=== PATIENT | female | born 1980 | race African-American/Black ===

== ENCOUNTER 2019-05-11 16:00 | Emergency (ER) | payer MEDICAID ==
[~2019-05-11] VITALS: Ht 162.6 cm; Wt 65.0 kg
[2019-05-11] MEDS ORDERED: HYDROCODONE/ACETAMINOPHEN 5/325MG TABLET PO ONE (17:00)
[2019-05-11] MEDS ORDERED: ACETAMINOPHEN 500MG TABLET PO ONE (19:00)
[2019-05-11 19:14] VITALS: BP 115/77
== END 2019-05-11 19:21 | disposition home or self-care (01) ==
LOC: ER 16:00
DX: M25.562 Pain in left knee (principal); M25.462 Effusion, left knee; J45.909 Unspecified asthma, uncomplicated; I50.9 Heart failure, unspecified; M06.9 Rheumatoid arthritis, unspecified; Z98.890 Other specified postprocedural states
CPT/HCPCS: 73562; 99283; L1830